=== PATIENT | female | born 1995 | race Caucasian/White ===

== ENCOUNTER 2019-03-14 08:11 | Emergency (ER) | payer OTHER ==
[~2019-03-14] VITALS: Ht 165.1 cm; Wt 61.2 kg
[2019-03-14 08:22] VITALS: BP 122/75
[2019-03-14] MEDS ORDERED: TRIA10.8 NS (08:41)
[2019-03-14] MEDS ORDERED: AMOX1TAB61 PO (08:41)
[2019-03-14] MEDS ORDERED: METH4TAB2 PO (08:41)
[2019-03-14] MEDS ORDERED: ACET-704 PO (08:41)
--- NOTE | 2019-03-14 08:41 | PHYS DOC ---
Past History Past Medical History: No Pertinent History Past Surgical History: No Surgical History Alcohol Use: None Drug Use: None Adult General Chief Complaint Chief Complaint: EARACHE/EAR PAIN [facility] HPI Patient is a 23-year-old female who presents with complaint of bilateral ear pain with muffled hearing and sounding like crackly sounds whenever she bends over the last few days. Patient recently had sustained a head injury for which she had undergone imaging with no acute findings. Patient denies any fever. She also denies any vertiginous dizziness. She does indicate that both of her ears are hurting and rates the pain as moderate. She states that the right ear is more painful than the left.[] Review of Systems Review of Systems Constitutional: Denies fever or chills [] HENT: Positive bilateral ear pain[] Respiratory: Denies cough or shortness of breath [] Cardiovascular: No additional information not addressed in HPI [] Integument: Denies rash or skin lesions [] Allergies Allergies Allergies Coded Allergies Type Severity Reaction Last Updated Verified No Known Drug Allergies 03/14/19 No Physical Exam Physical Exam Constitutional: Well developed, well nourished, no acute distress, non-toxic appearance. [] HENT: Normocephalic, atraumatic, left TM is retracted, dull and erythematous. Right TM demonstrates fluid level and is slightly bulging. [] Neck: Normal range of motion, no tenderness, supple. [] Cardiovascular:Heart rate regular rhythm, no murmur [] Lungs & Thorax: Bilateral breath sounds clear to auscultation [] Neurologic: Alert and oriented X 3, no focal deficits noted. [] Current Patient Data Vital Signs Vital Signs Date Time Temp Pulse Resp B/P (MAP) Pulse Ox O2 Delivery O2 Flow Rate FiO2 03/14/19 08:22 98.1 63 18 100 Room Air EKG EKG [] Radiology/Procedures Radiology/Procedures [] Course & Med Decision Making Course & Med Decision Making Pertinent Labs and Imaging studies reviewed. (See chart for details) [] Dragon Disclaimer Dragon Disclaimer This electronic medical record was generated, in whole or in part, using a voice recognition dictation system. Departure Departure: Impression: Primary Impression: Left otitis media Additional Impression: Eustachian tube dysfunction Disposition: 01 HOME, SELF-CARE Condition: STABLE Referrals: CONNIE BACH (PCP) Patient Instructions: Otitis Media, Adult Scripts Acetaminophen With Codeine (TYLENOL WITH CODEINE #3 TABLET) 1 Each Tablet 1 TAB PO Q4-6HRS PRN for PAIN, #15 TAB Prov: GLADYS GALLEGOS Jr. DO 03/14/19 Triamcinolone Acetonide (NASACORT) 10.8 Ml [place] 2 SPRAYS NS DAILY for inflammation, #10.8 ML Prov: GLADYS GALLEGOS Jr. DO 03/14/19 Methylprednisolone (MEDROL) 4 Mg Tab.ds.pk 1 PKG PO UD for inflammation, #1 PKG Prov: GLADYS GALLEGOS Jr. DO 03/14/19 Amoxicillin/Potassium Clav (AUGMENTIN 875-125 TABLET) 1 Each Tablet 1 TAB PO BID for infection, #20 TAB Prov: GLADYS GALLEGOS Jr. DO 03/14/19 Problem Qualifiers Primary Impression: Left otitis media Otitis media type: unspecified Qualified Codes: H66.92 - Otitis media, unspecified, left ear Additional Impression: Eustachian tube dysfunction Laterality: left Qualified Codes: H69.82 - Other specified disorders of eustachian tube, left ear GLADYS GALLEGOS Jr. DO March 14, 2019 08:41
== END 2019-03-14 08:46 | disposition home or self-care (01) ==
LOC: ER 08:11
DX: H66.92 Otitis media, unspecified, left ear (principal); H69.82 Other specified disorders of Eustachian tube, left ear; H92.01 Otalgia, right ear
CPT/HCPCS: 99283